=== PATIENT | male | born 1975 | race Caucasian/White ===

== ENCOUNTER 2017-02-17 14:10 | Emergency (ER) | payer OTHER ==
--- NOTE | 2017-02-17 14:40 | PDOC ---
Rapid Medical Evaluation Time Seen by Provider: 02/17/17 14:38 Medical Evaluation: Allergies Allergy/AdvReac Type Severity Reaction Status Date / Time No Known Allergies Allergy Verified 02/17/17 14:38 02/17/17 14:38 I have performed a brief in-person evaluation of this patient. The patient presents with a chief complaint of: waking up w/ L knee pain a week ago, no trauma Pertinent physical exam findings:Minimal swelling to L knee I have ordered the following:nothing The patient will proceed to the ED for further evaluation.
[2017-02-17 14:42] VITALS: BP 166/117; PULSE 112; TEMP 98.5; BMI 34.9
--- NOTE | 2017-02-17 15:54 | PDOC ---
History of Present Illness - General Chief Complaint: Pain Stated Complaint: LEFT LEG PAIN Time Seen by Provider: 02/17/17 14:38 History Source: Patient Exam Limitations: No Limitations - History of Present Illness Initial Comments: 02/17/17 15:49 Patient here with complaints of swelling, tenderness and fullness to his left knee. States day before onset of this pain and swelling was out shoveling the walk, performing multiple errands and heavy lifting at home. Woke up the following morning with swelling and tenderness to his left knee. has been using ice and Aleve with some symptomatic relief. States also tried using a cyclobenzaprine which provided some rest at woke up following morning with the same swelling and tenderness. Denies instability to the knee but states is painful to bend Occurred: reports: last week, other Severity: reports: mild, moderate Pain Location: reports: lower extremity (left knee) Method of Injury: Yes: unknown Associated Symptoms (Fall): denies symptoms Past History - Travel Traveled outside of the country in the last 30 days: No Close contact w/someone who was outside of country & ill: No - Past Medical History Allergies/Adverse Reactions: Allergies Allergy/AdvReac Type Severity Reaction Status Date / Time No Known Allergies Allergy Verified 02/17/17 14:38 Home Medications: Ambulatory Orders Naproxen [Naprosyn -] 500 mg PO BID #30 tablet 02/17/17 COPD: No Other medical history: DENIES. - Suicide/Smoking/Psychosocial Hx Smoking History: Never smoked Review of Systems - Review of Systems Able to Perform ROS?: No Is the patient limited Tamazight proficient: No Constitutional: Yes: Symptoms Reported, See HPI, Malaise HEENTM: Yes: See HPI Respiratory: Yes: See HPI, Cough All Other Systems: Reviewed and Negative *Physical Exam - Vital Signs Last Vital Signs Temp Pulse Resp BP Pulse Ox 98.5 F 112 H 19 166/117 98 02/17/17 14:38 02/17/17 14:38 02/17/17 14:38 02/17/17 14:38 02/17/17 14:38 - Physical Exam General Appearance: Yes: Nourished, Appropriately Dressed, Apparent Distress HEENT: positive: ZHANG, Normal ENT Inspection, TMs Normal, Pharynx Normal Neck: positive: Supple Gastrointestinal/Abdominal: positive: Normal Bowel Sounds, Soft. negative: Tender Musculoskeletal: positive: Normal Inspection. negative: Vertebral Tenderness Extremity: positive: Normal Capillary Refill, Normal Inspection, Swelling. negative: Normal Range of Motion (limited range of motion secondary to swelling , patella is mobile, with ballottement. Has some reproduce tenderness in posterior fossa, and with flexion past 45. No instability noted but patient is guarding and difficult to check anterior drawer sign) Integumentary: positive: Dry, Warm, Pale, Swelling. 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 NML intact, Fully Oriented, Alert, Normal Mood/ Affect *DC/Admit/Observation/Transfer Diagnosis at time of Disposition: Knee sprain Qualifiers: Encounter type: initial encounter Involved ligament of knee: unspecified ligament Laterality: left Qualified Code(s): S83.92XA - Sprain of unspecified site of left knee, initial encounter - Discharge Dispostion Disposition: HOME Condition at time of disposition: Stable Admit: No - Prescriptions Prescriptions: Naproxen [Naprosyn -] 500 mg PO BID #30 tablet - Referrals Referrals: Calos Skaggs MD [Primary Care Provider] - Levi Connell MD [Staff Physician] - - Patient Instructions Printed Discharge Instructions: DI for Knee Sprain Additional Instructions: Rest, ice to area on and off for 15 minutes 4-6 times a day Avoid heavy lifting or exercise until pain and swelling is resolved or until further directed Keep area highly elevated to reduce swelling Use splints/Stone wrap as directed Followup with orthopedist in one to 2 days if not improving, if significantly improved may wait one week for followup with orthopedist May use Naprosyn 1-500 mg tablet every 8 hours as needed for pain - Post Discharge Activity
== END 2017-02-17 15:56 | disposition home or self-care (01) ==
LOC: JERFT 14:10
DX: S83.8X2A Sprain of other specified parts of left knee, initial encounter (principal); X50.0XXA Overexertion from strenuous movement or load, initial encounter; Y93.89 Activity, other specified; Y92.89 Other specified places as the place of occurrence of the external cause; Y99.8 Other external cause status
CPT/HCPCS: 99281-25